=== PATIENT | male | born 1975 | race Caucasian/White ===

== ENCOUNTER 2020-03-12 05:31 | Emergency (ER) | payer MEDICARE, SELFPAY ==
[~2020-03-12] VITALS: Ht 180.3 cm; Wt 73.0 kg
[2020-03-12] MEDS ORDERED: PERMETHRIN 5% CREAM 60GM TOP ONE (06:15)
[2020-03-12] MEDS ORDERED: NYSTATIN 100,000 UNITS/GM OINT 15GM TOP STA (06:50)
[2020-03-12] MEDS ORDERED: IBUPROFEN 400MG TABLET PO ONE (07:00)
[2020-03-12] MEDS ORDERED: DIPHENHYDRAMINE 25MG CAPSULE PO ONE ×2 (07:00→21:30)
[2020-03-12 07:12] LABS: CLARITY URINE CLEAR (CLEAR); COLOR URINE YELLOW (YELLOW); KETONES URINE NEGATIVE (NEGATIVE); LEUKOCYTE ESTERASE URINE NEGATIVE (NEGATIVE); NITRITE URINE NEGATIVE (NEGATIVE); OCCULT BLOOD URINE NEGATIVE (NEGATIVE); PROTEIN URINE NEGATIVE (NEGATIVE); SPECIFIC GRAVITY URINE 1.006 (1.005-1.030); UROBILINOGEN URINE 0.2 E.U./dL (0.2-1.0)
[2020-03-12 08:36] LABS: PHENCYCLIDINE URINE SCREEN NEGATIVE (NEGATIVE)
[2020-03-12 08:37] LABS: *AMPHETAMINES SCREEN URINE NEGATIVE (NEGATIVE); *BARBITURATES SCREEN URINE NEGATIVE (NEGATIVE); *BENZODIAZEPINES SCREEN URINE NEGATIVE (NEGATIVE); *COCAINE SCREEN URINE NEGATIVE (NEGATIVE); CANNABINOID URINE SCREEN NEGATIVE (NEGATIVE); METHADONE URINE SCREEN NEGATIVE (NEGATIVE); OPIATES URINE SCREEN NEGATIVE (NEGATIVE)
[2020-03-12 08:51] LABS: HEMATOCRIT. 36.2 % (42.0-52.0); HEMOGLOBIN. 12.3 g/dL (14.0-18.0); MEAN CORPUSCULAR HEMOGLOBIN 30.3 pg (28.0-32.0); MEAN CORPUSCULAR VOLUME 89.6 fL (80.0-94.0); MEAN PLATELET VOLUME 7.1 fl (7.4-10.4); PLATELET 265 x1000/uL (130-400); RED BLOOD CELL COUNT 4.04 mill/uL (4.7-6.1); RED CELL DISTRIBUTION WIDTH 13.5 % (11.6-14.6)
[2020-03-12 08:52] LABS: CHLORIDE 107 mEq/L (98-107)
[2020-03-12 08:56] LABS: ETHANOL BLOOD < 10 mg/dL
[2020-03-12 09:31] LABS: PLATELET ESTIMATE NORMAL
[2020-03-12] MEDS ORDERED: RISPERIDONE 1MG TABLET PO SCH (12:00)
[2020-03-12] MEDS: RISPERIDONE 0.5MG TABLET PO SCH ×3 (12:05→17:30)
[2020-03-12] MEDS ORDERED: PIPERONYL/PYRETHRINS (RID)120 ML SHAMPOO TOP NR (20:30)
[2020-03-12] MEDS: RISPERIDONE 1MG TABLET PO SCH (21:00)
[2020-03-13] MEDS: RISPERIDONE 0.5MG TABLET PO SCH (17:00)
[2020-03-13] MEDS: RISPERIDONE 1MG TABLET PO SCH (22:20)
[2020-03-14] MEDS: RISPERIDONE 1MG TABLET PO SCH (21:00)
[2020-03-15] MEDS: RISPERIDONE 0.5MG TABLET PO SCH (01:46)
[2020-03-15] MEDS: RISPERIDONE 1MG TABLET PO SCH ×2 (09:57→21:00)
[2020-03-16] MEDS: RISPERIDONE 1MG TABLET PO SCH ×3 (09:00→23:40)
[2020-03-17] MEDS: RISPERIDONE 1MG TABLET PO SCH ×2 (11:56→23:42)
[2020-03-18] MEDS: RISPERIDONE 1MG TABLET PO SCH (09:58)
[2020-03-19] MEDS ORDERED: PERMETHRIN 5% CREAM 60GM TOP ONE (08:45)
[2020-03-19] MEDS: RISPERIDONE 1MG TABLET PO SCH (09:45)
[2020-03-19 18:40] VITALS: BP 116/74
== END 2020-03-19 19:00 ==
LOC: ER 05:31
DX: R45.850 Homicidal ideations (principal); F17.290 Nicotine dependence, other tobacco product, uncomplicated; F20.9 Schizophrenia, unspecified
CPT/HCPCS: 36415; 80053; 80305; 80320; 81003; 85025; 93005; 99285; Q0163; G0480